=== PATIENT | male | born 1975 | race Caucasian/White ===

== ENCOUNTER 2018-01-22 09:20 | Emergency (ER) | payer SELFPAY ==
[~2018-01-22] VITALS: Ht 177.8 cm; Wt 74.0 kg
[2018-01-22 09:35] VITALS: BP 126/67; PULSE 67; RESP 16; TEMP 97.6; O2SAT 100
--- NOTE | 2018-01-22 09:55 | PD ---
HPI Chief Complaint: Chest Pain Time Seen by Provider: 09:42 Travel History International Travel<30 days: No Contact w/Intl Traveler<30days: No Traveled to known affect area: No History of Present Illness HPI This patient complains of chest pain. He had a spell of low central sternal pressure that lasted 2.5 hours. When I evaluate him at 9:50 AM it is basically resolved. There were no alleviating factors. It was moderately severe but is now gone. No exacerbating factors. He has no history of cardiac or pulmonary disease. He tried some Tums but the pain persisted. He does not describe it as heartburn. Not having abdominal pain but it was low in the chest. Has never had this before. PFSH Past Surgical History Surgical History: No Previous Surgery Social History Alcohol Use: Yes Tobacco Use: No (vapor) Substance Use: No Allergies-Medications (Allergen,Severity, Reaction): Coded Allergies: Penicillins (Verified Allergy, Severe, Anaphylaxis, 01/22/18) amoxicillin (Verified Allergy, Severe, Anaphylaxis, 01/22/18) Reported Meds & Prescriptions Reported Meds & Active Scripts Active No Active Prescriptions or Reported Medications Review of Systems General / Constitutional: No: Fever Eyes: No: Visual changes HENT: No: Headaches Cardiovascular: Positive: Chest Pain or Discomfort Respiratory: No: Shortness of Breath Gastrointestinal: No: Abdominal Pain Genitourinary: No: Dysuria Musculoskeletal: No: Pain Skin: No Rash Neurologic: No: Weakness Psychiatric: No: Depression Endocrine: No: Polydipsia Hematologic/Lymphatic: No: Easy Bruising Physical Exam Narrative GENERAL: Well-nourished, well-developed patient in no apparent distress. SKIN: Focused skin assessment reveals no rash and nodules. Skin is Warm and dry. HEAD: Atraumatic. Normocephalic. EYES: Pupils equal and round. No scleral icterus. No injection or drainage. ENT: No nasal bleeding or discharge. Mucous membranes pink and moist. NECK: Trachea midline. No JVD. CARDIOVASCULAR: Regular rate and rhythm. No murmur appreciated. RESPIRATORY: No accessory muscle use. Clear to auscultation. Breath sounds equal bilaterally. GASTROINTESTINAL: Abdomen soft, non-tender, nondistended. Hepatic and splenic margins not palpable. MUSCULOSKELETAL: No obvious deformities. No clubbing. No cyanosis. No edema. NEUROLOGICAL: Awake and alert. No obvious cranial nerve deficits. Motor grossly within normal limits. Normal speech. PSYCHIATRIC: Appropriate mood and affect; insight and judgment normal. Data Data Last Documented VS Vital Signs Date Time Temp Pulse Resp B/P (MAP) Pulse Ox O2 Delivery O2 Flow Rate FiO2 01/22/18 09:35 97.6 67 16 126/67 (86) 100 Orders Orders Electrocardiogram (01/22/18 09:49) Ckmb (Isoenzyme) Profile (01/22/18 09:49) Complete Blood Count With Diff (01/22/18:49) Comprehensive Metabolic Panel (01/22/18:49) Prothrombin Time / Inr (Pt) (01/22/18:49) Act Partial Throm Time (Ptt) (01/22/18:49) Troponin I (01/22/18:49) Lipase (01/22/18:49) Chest, Single Ap (01/22/18:49) Ecg Monitoring (01/22/18:49) Iv Access Insert/Monitor (01/22/18:49) Oximetry (01/22/18:49) Aspirin (Aspirin) (01/22/18 10:00) Sodium Chloride 0.9% Flush (Ns Flush) (01/22/18 10:00) CKMB (01/22/18 10:02) CKMB% (01/22/18 10:02) Labs Laboratory Tests Test 01/22/18 10:02 White Blood Count 6.4 TH/MM3 Red Blood Count 4.23 MIL/MM3 Hemoglobin 13.4 GM/DL Hematocrit 39.1 % Mean Corpuscular Volume 92.6 FL Mean Corpuscular Hemoglobin 31.7 PG Mean Corpuscular Hemoglobin Concent 34.3 % Red Cell Distribution Width 14.5 % Platelet Count 334 TH/MM3 Mean Platelet Volume 8.2 FL Neutrophils (%) (Auto) 65.8 % Lymphocytes (%) (Auto) 23.2 % Monocytes (%) (Auto) 7.3 % Eosinophils (%) (Auto) 3.3 % Basophils (%) (Auto) 0.4 % Neutrophils # (Auto) 4.2 TH/MM3 Lymphocytes # (Auto) 1.5 TH/MM3 Monocytes # (Auto) 0.5 TH/MM3 Eosinophils # (Auto) 0.2 TH/MM3 Basophils # (Auto) 0.0 TH/MM3 CBC Comment DIFF FINAL Differential Comment Prothrombin Time 10.0 SEC Prothromb Time International Ratio 1.0 RATIO Activated Partial Thromboplast Time 28.1 SEC Blood Urea Nitrogen 15 MG/DL Creatinine 0.92 MG/DL Random Glucose 98 MG/DL Total Protein 7.2 GM/DL Albumin 3.9 GM/DL Calcium Level 10.0 MG/DL Alkaline Phosphatase 77 U/L Aspartate Amino Transf (AST/SGOT) 52 U/L Alanine Aminotransferase (ALT/SGPT) 41 U/L Total Bilirubin 0.5 MG/DL Sodium Level 140 MEQ/L Potassium Level 3.8 MEQ/L Chloride Level 106 MEQ/L Carbon Dioxide Level 27.2 MEQ/L Anion Gap 7 MEQ/L Estimat Glomerular Filtration Rate 91 ML/MIN Total Creatine Kinase 116 U/L Creatine Kinase MB 1.3 NG/ML Troponin I LESS THAN 0.02 NG/ML Lipase 289 U/L MDM Medical Decision Making Medical Screen Exam Complete: Yes Emergency Medical Condition: Yes Medical Record Reviewed: Yes Differential Diagnosis Differential diagnosis includes KS, angina, pericarditis, pleurisy, GERD, anxiety. Narrative Course I have reviewed the patient's electronic medical record. 950: I evaluated the patient. He is chest pain-free but will require some studies. Chest pain workup ordered, including LFTs and lipase given the low central nature of the pain but this is not epigastric I reviewed the EKG which shows sinus bradycardia no ST elevation His chest x-rays negative All his lab studies are normal including cardiac enzymes for one set Had a lengthy discussion with him and recommended 23 hour observation in the chest pain center to rule out cardiac cause of his symptoms He is declining and will sign out AGAINST MEDICAL ADVICE I've advised him to return if he worsens or changes his mind. He should get primary care follow-up Diagnosis Primary Impression: Chest pain in adult Scripts No Active Prescriptions or Reported Meds Disposition: 07 AGAINST MEDICAL ADVICE Rojas Crenshaw MD Jan 22, 2018 09:54
[2018-01-22] MEDS ORDERED: ASPIRIN 325 MG TAB PO ONE (10:00)
[2018-01-22] MEDS ORDERED: SODIUM CHLORIDE 0.9% FLUSH 10 ML FLUSH IVF PRN (10:00)
[2018-01-22 10:21] LABS: AUTOMATED NEUTROPHIL # 4.2 TH/MM3 (1.8-7.7); BASOPHIL % 0.4 % (0.0-2.0); EOSINOPHIL # 0.2 TH/MM3 (0-0.4); EOSINOPHIL % 3.3 % (0.0-4.0); HEMATOCRIT 39.1 % (39.0-51.0); HEMOGLOBIN 13.4 GM/DL (13.0-17.0); LYMPH % 23.2 % (9.0-44.0); LYMPHOCYTE # 1.5 TH/MM3 (1.0-4.8); MEAN CELL VOLUME 92.6 FL (80.0-100.0); MEAN CORPUSCULAR HEMOGLOBIN 31.7 PG (27.0-34.0); MEAN CORPUSCULAR HGB CONC 34.3 % (32.0-36.0); MEAN PLATELET VOLUME 8.2 FL (7.0-11.0); MONO % 7.3 % (0.0-8.0); MONOCYTE # 0.5 TH/MM3 (0-0.9); NEUT % 65.8 % (16.0-70.0); PLATELET COUNT 334 TH/MM3 (150-450); RED BLOOD COUNT 4.23 MIL/MM3 (4.50-5.90); RED CELL DISTRIBUTION WIDTH 14.5 % (11.6-17.2); WHITE BLOOD COUNT 6.4 TH/MM3 (4.0-11.0)
--- NOTE | 2018-01-22 10:27 | RADRPT ---
EXAM DATE/TIME: 01/22/2018 10:10 [facility] COMPARISON: No previous studies available for comparison. INDICATIONS : Lower chest pain for several hours starting this morning MEDICAL HISTORY : None. SURGICAL HISTORY : None. ENCOUNTER: Initial ACUITY: 1 day PAIN SCORE: 10/10 LOCATION: Bilateral lower chest FINDINGS: A single view of the chest demonstrates the lungs to be symmetrically aerated without evidence of mas s, infiltrate or effusion. The cardiomediastinal contours are unremarkable. Osseous structures are intact. CONCLUSION: No acute disease. Ulises Harris MD on January 22, 2018 at 10:25 Board Certified Radiologist. This report was verified electronically.
[2018-01-22 10:51] LABS: ALBUMIN 3.9 GM/DL (3.4-5.0); ALT (GPT) 41 U/L (12-78); AST (GOT) 52 U/L (15-37); BICARBONATE 27.2 MEQ/L (21.0-32.0); BLOOD UREA NITROGEN 15 MG/DL (7-18); CHLORIDE 106 MEQ/L (98-107); CREATININE 0.92 MG/DL (0.60-1.30); GLOMERULAR FILTRATION RATE 91 ML/MIN (>89); GLUCOSE,RANDOM 98 MG/DL (74-106); SODIUM (NA) 140 MEQ/L (136-145)
[2018-01-22 10:55] LABS: ALKALINE PHOSPHATASE 77 U/L (45-117); TOTAL BILIRUBIN ADULT 0.5 MG/DL (0.2-1.0); TOTAL PROTEIN 7.2 GM/DL (6.4-8.2); TROPONIN I LESS THAN 0.02 NG/ML (0.02-0.05)
--- NOTE | 2018-01-22 14:53 | EKG ---
Date Performed: 01/22/2018 Time Performed: 09:52:40 PTAGE: 42 years EKG: SINUS BRADYCARDIA WITH SINUS ARRHYTHMIA BORDERLINE ECG NO PREVIOUS TRACING DOCTOR: Joel Giordano Interpretating Date/Time 01/22/2018 14:52:24
== END 2018-01-22 12:34 | disposition left against medical advice (07) ==
LOC: NEPD 09:20
DX: R07.9 Chest pain, unspecified (principal); R94.31 Abnormal electrocardiogram [ECG] [EKG]
CPT/HCPCS: 71045; 80053; 82550; 82552; 83690; 84484; 85025; 85610; 85730; 93005